=== PATIENT | female | born 1995 | race Caucasian/White ===

== ENCOUNTER → 2022-03-02 10:40 | Outpatient (CLI) | payer OTHER, MEDICAID, SELFPAY ==
--- NOTE | 2022-03-02 10:42 | DI.US.S_ITS ---
PROCEDURE: US OB >= 14 WEEKS FETUS INDICATIONS: ANATOMY SCAN OUTSIDE/PRIOR DATING DATA: Last menstrual period (LMP): August 16, 2021. LMP-based estimated date of delivery (JOSÉ LUIS): May 23, 2022. First dating scan (date and location): March 02, 2022. Estimated date of delivery (JOSÉ LUIS) from first dating scan: May 14, 2022. The calculations are made using the clinically derived JOSÉ LUIS of May 23, 2022. TECHNIQUE: Real-time scanning was performed of the fetus, with image documentation and biometric measurements. Endovaginal scanning: Not performed COMPARISON: None. FINDINGS: General: A single living intrauterine gestation is present. Presentation: Transverse. Placenta: Placental position is anterior , without previa. Amniotic fluid index: 14.5 cm, normal range is 5-24 cm. Single deepest vertical pocket is 5.3 cm. heart rate: 139 beats per minute. Maternal cervical canal: 4.5 cm long. Normal lower limit is 2.5 cm. biometrics: Biparietal diameter: 7.36 cm, 29 weeks and 4 days Head circumference: 27.70 cm, 30 weeks and 2 days Abdominal circumference: 25.18 cm, 29 weeks and 3 days Femur length: 5.43 cm, 28 weeks and 5 days Clinically estimated gestational age: 28 weeks and 2 days Composite gestational age from present scan: 29 weeks and 4 days Estimated weight and percentile: 1363 g which correlates with the 75th percentile for gestational age Anatomic survey: Neuro: Ventricles are non-dilated at less than 10 mm. Cisterna magna is normal at 3-11 mm. Cerebellum is normal in size and morphology. Nuchal skin fold: Not assessed given gestational age greater than 14-21 weeks gestational age. Face: Nose and lips, facial profile are not well visualized. Spine: Limited evaluation of the lumbosacral spine. Heart: 4-chambered heart is present, with normal ventricular outflow tracts. Diaphragm: Diaphragm is intact. Stomach: Left-sided stomach is present. Kidneys: No hydronephrosis. Normal is less than 5 mm in 2nd trimester, less than 7 mm in 3rd trimester. Cord: 3-vessel cord has orthotopic insertion. Bladder: Normal in size. Extremities: All 4 extremities identified, but the lateral left leg was not well visualized. IMPRESSION: Single living intrauterine gestation with estimated gestational age of approximately 28 weeks and 2 days versus estimated sonographic gestational age of approximately 29 weeks and 4 days by today's ultrasound. Dating remains concordant. Estimated weight of approximately 1363 g which correlates with the 75th percentile. Limited visualization of the facial profile, nose/lips, lumbosacral spine, and lateral left lower extremity. Otherwise, unremarkable anatomic screening survey. Follow-up imaging recommended. We strive to produce accurate, complete, and clear reports of imaging services. To assist us in improving patient care, this report was composed using standard report templates and voice recognition software. Therefore, it may contain abnormal punctuation, insertions and/or omissions. Occasional wrong-word or sound-alike substitutions may occur. Though we review the report and make efforts to correct it, we do recommend that the report be read carefully in proper context to recognize any text inaccuracies. Dictated by: Leonardo Childs M.D. on 03/02/2022 at 14:25 Approved by: Leonardo Childs M.D. on 03/02/2022 at 14:33
== END ==
PROVIDERS: PCP Nurse Practitioner Family; Referring Provider Nurse Practitioner Obstetrics & Gynecology; Visit Provider Nurse Practitioner Obstetrics & Gynecology
DX: Z34.92 Encounter for supervision of normal pregnancy, unspecified, second trimester (principal); Z3A.20 20 weeks gestation of pregnancy
CPT/HCPCS: 76811

== ENCOUNTER 2022-05-15 10:35 | Inpatient (IN) | payer OTHER, MEDICAID, SELFPAY ==
--- NOTE | 2022-05-15 10:47 | PM.OBHP.1 ---
OB HPI Date/Time Date of admission: 05/15/22 Date Patient Seen: 05/15/22 Time Patient Seen: 10:47 History of Present Condition Chief complaint: LABOR & Delivery : 2 Para: 1 Estimated Date of Delivery: 05/23/22 Estimated Gestational Age (weeks): 38 Narrative: Karen Grimm is a 27 year old female @ 38w 6d by 13wk US concordant with LMP who presents to L&D in active labor. Patient is accompanied by FOB. Patient woke up to clear leaking fluid at 03:15, ongoing drainage of fluid throughout the morning. Contractions started shortly after ROM around 04:00, regular, strong, about 6 minutes apart, no vaginal bleeding. Could not go back to sleep. Patient texted CNM this morning at 08:20 stating she was in labor and on her way to . Texted CNM again one hour later reporting contractions occurring every 4min, patient presumed in active labor at this point. Patient was on the phone with CNM for 30min stating she was trying not to push. No obstetric complications this . Had limited care (5 total visits). Had a thrombosed hemorrhoid that was managed with OTC therapies. History of Present care: limited care, initiated at week # (13), number of visits (5) and pounds weight gain (35) Dating criteria: LMP confirmed by 1st trimester US Ultrasounds: normal 1st trimester US Medical complications: genitourinary (thropmbosed hemorrhoid ) Narrative: Uncomplicated , no obstetric complications Preadmission Labs Blood type: O (+) positive -: Antibody screen: negative, GBS status: negative, HBsAG: negative, HIV: negative, HSV 1: negative, HSV 2: negative and RPR/VDLR: negative -: Chlamydia screen: not detected and Gonorrhea screen: not detected -: Rubella: immune and Varicella: immune HCT: 33 HCAB: negative PAP: Normal Cell-free DNA: Negative 1 hr GTT: 105 Prior (ies) History: P1 04/27/2017 5hr labor, 15min 2nd stage Evaluation Evaluation Baseline heart rate: 115 (Intermittent heart rate monitoring, baseline 110-115, regular) Contraction Frequency (minutes): 3 Uterine Contraction Intensity: Strong/Firm Dilation (cm): 9 (Presumed almost complete based on maternal urge to push, no SVE done ) PFSH Medical History (Updated 05/15/22 @ 12:48 by Carol Santana CNM) Hemorrhoid Surgical History (Updated 05/15/22 @ 12:50 by Carol Santana CNM) H/O hemorrhoidectomy Social History (Updated 05/15/22 @ 12:54 by Carol Santana CNM) marital status: unmarried,living together education level: other occupational status: employed Meds Home Medications and Allergies Allergies Allergy/AdvReac Type Severity Reaction Status Date / Time No Known Drug Allergies Allergy Verified 05/15/22 12:51 Review of Systems Review of Systems ROS: Yes All systems reviewed with the patient and are negative except as otherwise documented OB Exam Resp Effort & Inspection: normal respiratory effort Auscultation: clear to auscultation bilaterally Cardio Rate: regular rate Heart Sounds: S1 normal and S2 normal External Female Exam: Yes normal external appearance Presentation: vertex Other: Thrombosed hemorrhoid Assessment and Plan Assessment and Plan Assessment and Plan narrative: A: Term multipara @ 38w6d Presumed active labor based on maternal urge to push and regular, strong contractions 3-4min apart Rh positive GBS prophylaxis not indicated heart rate reassuring by intermittent auscultation P: Admit, routine orders Anticipate imminent delivery Expectant management AMTL with IM pitocin Intermittent heart rate monitoring Pain: Nitrous oxide PRN Provide labor support
[2022-05-15] MEDS: OXYTOCIN 10 UNIT/ML VIAL IM (11:46)
--- NOTE | 2022-05-15 13:13 | PM.OBPRVD ---
Labor & Delivery Delivery date: 05/15/22 Delivery monitor: external FHT Route of delivery: Episiotomy description: None L&D Laceration Description: None Estimated blood loss (mL): 50 Anesthesia Type: None Narrative: This is a 27 year old G2 now P2002 who was admitted for active labor. She progressed rapidly to the second stage of labor right after she was admitted to the unit. She began pushing in the second stage on hands and knees in the shower with FOB and mother present. Around 11:35 patient switched to standing position and she was encouraged to sit on the stool. She pushed for a total of 1 hr 15min. She delivered a viable male on the stool, BERTO with compound left hand, over an intact perineum. A loose nuchal cord x 1 was identified and the infant was delivered through the nuchal cord. scores were 8 and 9. IM pitocin was administered. The patient and baby were moved out of the shower to the bed with the help of this CNM and SNM. The placenta was expressed and delivered at 12:19, 3 vessel cord, placenta and membranes appear intact. Vaginal and perineal inspection revealed no lacerations. The uterus was firm, minimal bleeding. EBL 50mL. Cord blood blood was sent. There were no complications during the procedure. Mom and baby bonding following delivery. Baby 1: gender: Male Presentation: vertex Position: Left Occiput Anterior and Right Occiput Anterior Placenta delivery description: Expressed (With fundal massage) Cord Vessel Description: 3 Vessels, Nuchal Cord (x1) and Loose score (1 min): 8 score (5 min): 9 weight: 3.016 kg Plan for aftercare: Routine care
[2022-05-15] MEDS: ACETAMINOPHEN 325 MG TABLET 650 MG PO (13:27)
[2022-05-15] MEDS: IBUPROFEN 600 MG TABLET PO (13:28)
[2022-05-15] MEDS: DERMOPLAST SPRAY 20% 60 ML 1 SPRAY TOP (13:28)
[2022-05-15 13:58] LABS: COVID19 -Nasal RAPID Negative (Negative)
[2022-05-15] MEDS: OXYCODONE IR 5 MG TABLET PO (14:12)
--- NOTE | 2022-05-15 14:49 | P.DS_ITS ---
Discharge Providers Provider Date of admission: 05/15/22 10:35 Discharge Date: 05/15/22 Primary care physician: BENI Zuniga Consults: 05/16/22 12:03 Consult to Hydraulic Spinner Routine Comment: Discharge provider: Carol Santana CNM Summary Hospital Course Date Patient Seen: 05/15/22 Time Patient Seen: 14:49 Diagnoses: O80 Hospital Course: Uncomplicated NSVB 1 hour after arrival at hospital with no lacerations and minimal blood loss (EBL 50mL). Stable and requesting d/c to home NINFA. Has showered and breastfed her baby well prior to showering. Peripartum Data Delivery Method: Natural Vaginal Laceration Description: None Episiotomy description: None complications: none 1: Gender: Male Disposition of : home Discharge Diagnosis (1) Encounter for full-term uncomplicated delivery: Status: Acute (2) Hemorrhoid: Status: Acute Status at Discharge Cognitive/behavioral status at discharge: oriented and calm Functional status at discharge: independent ambulation Time Spent with Patient Time attestation: Total time spent providing and/or coordinating discharge services: Objective Labs Labs: Laboratory Results - last 24 hr 05/15/22 13:35 SARS-CoV-2 (PCR) Negative Exam Vital Signs (past 8 hours): BP 123/60mmHg, HR 90bpm, T 36.2C Temporal Other: Fundus firm @ U. Lochia scant, no clots. Perineum with minimal edema. Hemorrhoids prominent. Discharge Plan Discharge Plan Patient Disposition: Home Discharge orders & Medications Prescriptions: New ibuprofen 600 mg Tablet 600 mg PO Q6HR PRN (Reason: Pain, Mild (1-3)) 14 Days Qty: 60 0RF hydrocortisone [Proctosol HC] 2.5 % cream with perineal applicator 1 applic [place] BID-QID PRN (Reason: hemorrhoids) 14 Days Qty: 30 0RF Follow up/Referrals: Carmella Lopez ARNP [Primary Care Provider] - Carol Santana CNM [Advanced Vessel Specialist] - (Follow-up by phone 05/26/22 @ 1030 Follow-up in office 05/29/22 @ 0900) Diet/Activity/Treatments Diet: Regular Activity: pelvic rest Skin/Wound/Dressing Care Report to your healthcare provider any signs of infection, such as:: chills, fever, increased pain, unusual drainage and unusual redness Visit Report/Discharge Packet Instructions: DI for Depression Stand Alone Forms: Discharge: Care Discharge Data Primary Care Provider: Carmella Lopez
[2022-05-15 15:59] VITALS: BP 124/80
[2022-05-15 16:03] VITALS: BP 124/80; PULSE 93; RESP 14; TEMP 36.7
[2022-05-15 16:05] LABS: Add Manual Diff / Slide Review NO; Basophils Absolute Auto 0 /uL (0-100); Basophils Percent Auto 0.2 % (0-2); Eosinophils Absolute Auto 0 /uL (0-450); Hematocrit 34.2 % (36-46); Hemoglobin 11.2 g/dL (12.0-16.0); Lymphocytes Absolute Auto 900 /uL (1100-4500); Lymphocytes Percent Auto 4.8 % (25-40); Mean Corpuscular HGB Conc 32.8 % (30-36); Mean Corpuscular Hemoglobin 25.9 PG (26-34); Mean Corpuscular Volume 78.9 fL (80-100); Monocytes Absolute Auto 600 /uL (0-900); Monocytes Percent Auto 2.9 % (3-14); Neutrophils Absolute Auto 18200 /uL (1500-7000); Neutrophils Percent Auto 92.1 % (50-75); Platelet Count 286 X10^3/uL (150-400); Red Blood Cell Count 4.34 X10^6/uL (4.0-5.2); White Blood Cell Count 19.8 X10^3/uL (4.5-11.0)
== END 2022-05-15 18:20 | disposition home or self-care (01) | DRG 560 ==
PROVIDERS: Admitting Provider Nurse Practitioner Obstetrics & Gynecology; PCP Nurse Practitioner Family; Referring Provider Nurse Practitioner Obstetrics & Gynecology; Visit Provider Nurse Practitioner Obstetrics & Gynecology
DX: O80 Encounter for full-term uncomplicated delivery (principal); Z3A.38 38 weeks gestation of pregnancy; Z37.0 Single live birth; Z20.822 Contact with and (suspected) exposure to COVID-19
CPT/HCPCS: 59050; 85025; 87635; C9803; G0379; J2590